=== PATIENT | male | born 1970 | race Asian ===

== ENCOUNTER 2020-09-19 15:20 | Emergency (ER) | payer BC, SELFPAY ==
[2020-09-19 15:31] VITALS: BP 139/90; PULSE 77; RESP 16; TEMP 36.6; O2SAT 99
[2020-09-19 15:40] VITALS: BP 139/90; PULSE 77; RESP 16; TEMP 36.6; O2SAT 99
--- NOTE | 2020-09-19 15:55 | ED.EYEPROB ---
HPI - Eye Problem General Chief complaint: Eye Problems Stated complaint: Eye Pain Time Seen by Provider: 09/19/20 15:45 Source: patient Mode of arrival: ambulatory Limitations: no limitations History of Present Illness HPI Narrative: Olivier Rapp is a 49-year-old male with no PMH who comes [facility] with complaints of left eye pain and tearing. He has had this multiple times the last 2 months and this is the third incident and has seen an [facility] [place] [facility] 2 times before. They have tried on eyedrops and antibiotic eyedrops with limited success. Pain started again last night and woke him up from sleep. States that his eyes tear so badly at times that he can see clearly. His eyes been flushed and they have been forcing stain by optometry and they found nothing; last time he was at an [facility] a few weeks ago they found a rust stain on his sclera (by patient report). Does not work in a situation where there is a lot of dust or other kinds of foreign debris that would get in his eyes Related Data Home Medications Medication Instructions Recorded Confirmed Otc Multivitamin 09/19/20 Allergies Allergy/AdvReac Type Severity Reaction Status Date / Time No Known Allergies Allergy Unverified 10/09/17 06:18 Review of Systems Review of Systems: Narrative: CONSTITUTIONAL: Denies fever, chills, sweats. EYES: Denies visual changes, left eye redness, discharge. Left eye is tearing ENT: Denies rhinorrhea, congestion, sore throat, otalgia. CARDIOVASCULAR: Denies chest pain, palpitations, edema. RESPIRATORY: Denies dyspnea, wheezing, cough GASTROINTESTINAL: Denies abdominal pain, nausea, vomiting, diarrhea. GENITOURINARY: Denies dysuria, hematuria, abnormal discharge SKIN: Denies rash or itching. NEUROLOGIC: Denies numbness, or focal weakness. PSYCHIATRIC: Denies anxiety or depression. [facility] Past Medical History Medical History No acute medical problems Family History Family History Father Hypertension Social History Social History Smoking status: Never smoker Alcohol intake: never Comments At time of signature, I agree with nursing past medical, surgical, social and family history. There is no relevant family history pertinent to the presenting complaint. Exam Narrative: Exam Narrative: GENERAL: This is a well-nourished, well-developed patient, in moderate distress. HEAD: normocephalic, atraumatic. EYES: PERRL. Sclera clear/white on right, injected on left. Vision is grossly intact. Left eye tearing uncontrollably EARS: External ears normal. Hearing grossly intact. NOSE: External nose normal without nasal discharge, nares without redness, no rhinorrhea. THROAT: Mucous membranes moist, NECK: Neck supple, CARDIOVASCULAR: Regular rate and rhythm without murmurs, gallops, or rubs. RESPIRATORY: Clear to auscultation. Breath sounds equal bilaterally. No wheezes, rales, or rhonchi. GASTROINTESTINAL: Abdomen soft, SKIN: warm, intact with no suspicious lesions or rash, good texture and turgor. NEURO: awake, alert, and oriented to person, place and time. There were no obvious focal neurologic abnormalities. Steady gait EXTREMITIES: Normal range of motion. BACK: Nontender without deformity Course Course Emergency Course: Patient comes to [facility] with tearing and eye pain third occurrence in 2 months he has been seen multiple times at optometrists who have not been able to figure out cause I flushed with normal saline and inspected; no apparent ulceration but I is clearly injected mild erythema of inside upper and lower lid particularly, its he feels like something is inside the upper eyelid on the inner canthus but unable to visualize any object, use tetracaine to numb the eyes to give patient some relief, ordered Leslie santos
== END 2020-09-19 16:14 | disposition home or self-care (01) ==
PROVIDERS: Emergency Provider Nurse Practitioner; PCP Family Medicine
DX: H57.12 Ocular pain, left eye (principal)
CPT/HCPCS: 99213; A9270; G0463

== ENCOUNTER 2021-04-09 08:22 | Outpatient (CLI) | payer BC, SELFPAY ==
--- NOTE | ~2021-04-09 | XR_ITS ---
EXAMINATION: XR UGIAC w barium swallow DATE: 04/09/2021 09:11 INDICATION: Heartburn. TECHNIQUE: The patient drank thick barium, gas-producing crystals, and thin barium. Fluoroscopy of th e esophagus, stomach, and proximal small bowel was performed. Fluoroscopy exposure time was 0.6 minut es. The total number of images was 229. Total dose-area product was 1.478 Gy-cm^2. COMPARISON: CT abdomen and pelvis 10/09/2017 FINDINGS: There is no mass or stricture of the esophagus. Esophageal motility is normal. There is no hiatal hernia. There was no gastroesophageal reflux with provocative maneuvers. The stomach and proxi mal small bowel show normal folding patterns. IMPRESSION: 1. Normal esophagram and upper gastrointestinal series. Reviewed, dictated and finalized at location A.
== END 2021-04-09 08:23 | disposition home or self-care (01) ==
PROVIDERS: PCP Internal Medicine; Visit Provider Nurse Practitioner
DX: R12 Heartburn (principal)
CPT/HCPCS: 74246

== ENCOUNTER 2023-11-14 06:44 | Day surgery (SDC) | payer BC, SELFPAY ==
[2023-10-30 09:04] VITALS: BMI 28.8
--- NOTE | 2023-11-12 14:34 | SUR.PREOP ---
Patient called regarding upcoming procedure. Reviewed preop instructions, appointment times, and procedure prep.
--- NOTE | 2023-11-13 13:40 | PM.HPGS ---
History of Present Illness History of Present Illness Consent: Risks, benefits, and alternatives have been discussed and questions answered. Patient agrees to proceed with procedure. Chief complaint: neoplasm screening Narrative: Olivier Rapp is a 52 year old male Referred for colon cancer screening. Review of Systems Review of Systems: All systems reviewed & are unremarkable except as noted in HPI and below PMFSH Past Medical History Medical History Painful joint Family History Family History Father Hypertension Social History Social History Smoking status: Never smoker Second hand tobacco smoke exposure: No Alcohol intake: never Substance use: never Living arrangements: with family Occupation/Education: occupation Additional occupation/education comments: Works for [employer] concerns: No Meds Home Medications and Allergies Home Medications Medication Instructions Recorded Confirmed Type Otc Multivitamin 09/19/20 09/04/23 History levocetirizine 5 mg tablet (Xyzal) 10 mg PO DAILY 04/04/21 10/30/23 History famotidine 40 mg tablet 40 mg PO DAILY #90 tabs 10/16/21 10/30/23 Rx Allergies Allergy/AdvReac Type Severity Reaction Status Date / Time No Known Allergies Allergy Verified 11/14/23 09:20 Exam Const: General: alert Orientation/consciousness: patient oriented x3 Resp: Auscultation: clear to auscultation bilaterally Cardio: Rhythm: regular rhythm GI: GI Palp: Yes Soft to palpation and No Tenderness to palpation present (GI) Neuro: General: patient oriented x3 Assessment and Plan Assessment and plan (1) Screening for colon cancer: Code(s): Z12.11 - Encounter for screening for malignant neoplasm of colon Status: Acute Assessment and Plan: Colonoscopy with possible biopsy or polypectomy or cautery or injection of substances.
[2023-11-14 09:20] VITALS: BP 118/71; PULSE 82; RESP 82; TEMP 36.1
[2023-11-14] MEDS: LACTATED RINGERS 1,000 ML 150 ML IV CONT (09:30)
--- NOTE | 2023-11-14 09:55 | P.PNAN_ITS ---
Anes - Initial Pre Proc Eval Procedure: Operation Date: 11/14/23 10:30 Proposed Procedures p Screening Colonoscopy - Nick Ferreira MD Date/Time: 11/14/23 09:55 Surgeon: Nick Ferreira MD Pre Op Diagnosis: neoplasm screening Patient Data Age: 52 Gender: M Height: 1.78 m Weight: 91 kg Last Vital Signs Temp 97 F L 11/14/23 09:20 Pulse 82 11/14/23 09:20 Resp 82 H 11/14/23 09:20 BP 118/71 11/14/23 09:20 Allergies Allergy/AdvReac Type Severity Reaction Status Date / Time No Known Allergies Allergy Verified 11/14/23 09:20 Home Medications Medication Instructions Recorded Confirmed Type Otc Multivitamin 09/19/20 09/04/23 History levocetirizine 5 mg tablet (Xyzal) 10 mg PO DAILY 04/04/21 10/30/23 History famotidine 40 mg tablet 40 mg PO DAILY #90 tabs 10/16/21 10/30/23 Rx Patient hx anesthesia problems: none Family hx anesthesia problems: none Results Review: All pre-operative results and documents have been reviewed as part of the pre- operative evaluation. PMFSH Past Medical History Medical History Painful joint Family History Family History Father Hypertension Social History Social History Smoking status: Never smoker Second hand tobacco smoke exposure: No Alcohol intake: never Substance use: never Living arrangements: with family Occupation/Education: occupation Additional occupation/education comments: Works for [employer] concerns: No Anes - Eval Final PreProcedure Day of Procedure 11/14/23 09:55 Patient weight: normal Heart: regular rate and rhythm Lungs: clear to auscultation Airway: Mallampati scale class II Neurological: alert and oriented Last oral intake: >/= 8 hours ASA classification: II Emergent: no Anesthetic plan: proceed Anesthesia type and monitoring: general GIVS and standard monitoring Results Review: All pre-operative results and documents have been reviewed as part of the pre- operative evaluation. Informed Consent: The patient's anesthetic plan and its attendant risks and benefits were discussed with the patient/family/POA. Questions were solicited and answers provided to the satisfaction of the patient/family/POA.
[2023-11-14 10:28] VITALS: BP 106/71; PULSE 81; RESP 18; O2SAT 95
[2023-11-14 10:38] VITALS: BP 115/70; PULSE 77; RESP 16; O2SAT 96
[2023-11-14 10:48] VITALS: BP 116/84; PULSE 68; RESP 18; O2SAT 97
== END 2023-11-14 11:05 | disposition home or self-care (01) ==
PROVIDERS: PCP Nurse Practitioner; Visit Provider Internal Medicine Gastroenterology
PROC: 0DJD8ZZ Inspection of Lower Intestinal Tract, Via Natural or Artificial Opening Endoscopic (ICD-10-PCS; CPT 45378; principal; 2023-11-14 10:30)
DX: Z12.11 Encounter for screening for malignant neoplasm of colon (principal)
CPT/HCPCS: 45378; J2704; J7120